=== PATIENT | male | born 1985 | race Hispanic/Latino ===

== ENCOUNTER 2018-01-07 00:50 | Inpatient (IN) | payer OTHER ==
[2018-01-07] MEDS ORDERED: Fentanyl 100 MCG/2 ML VIAL ONE ×2 (00:56→10:19)
[2018-01-07 01:07] LABS: Hemoglobin 12.8 g/dL (14.0-18.0); Mean Corpuscular HGB CONC 33.9 g/dL (32.0-36.0); Mean Corpuscular Hemoglobin 30.1 pg (27.0-31.0); Mean Corpuscular Volume 88.8 fl (80.0-94.0); Mean Platelet Volume 6.8 fL (7.4-10.4); Platelet Count 274 thou/uL (130-400); RBC Distribution Width 12.3 % (11.5-14.5); Red Blood Cell (RBC) Count 4.24 mill/uL (4.70-6.10); White Blood Cell (WBC) Count 15.8 thou/uL (4.8-10.8)
[2018-01-07 01:12] LABS: INR-International Normal Ratio 1.2; PTT 24.6 SEC (22.9-36.1); Prothrombin Time 15.3 SEC (12.0-14.7)
[2018-01-07 01:20] LABS: ALT (SGPT) 69 U/L (8-55); AST (SGOT) 121 U/L (5-34); Albumin 3.9 g/dL (3.5-5.0); Alkaline Phosphatase 78 U/L (40-150); Anion Gap 13 mmol/L (10-20); BUN (Urea Nitrogen) 4 mg/dL (8.9-20.6); Bilirubin, Total 0.5 mg/dL (0.2-1.2); Calc. Creatinine Clearance 0 mL/min (70-130); Carbon Dioxide 23 mmol/L (22-29); Chloride 104 mmol/L (98-107); Estimated GFR-MDRD Greater than 90; Globulin 2.4 g/dL (2.4-3.5); Glucose 151 mg/dL (70-105); Protein, Total 6.3 g/dL (6.0-8.3); Sodium 137 mmol/L (136-145)
[2018-01-07 01:22] LABS: Eosinophils 1 % (0-10); Lymphocytes 44 % (21-51); MDiff Complete? YES; Monocytes 1 % (0-10); Neutrophil 49 % (42-75); PLT Morphology Comment Appears Adequate; RBC Morphology Normal; Reactive Lymphocytes 5 % (0-10)
[2018-01-07 01:24] LABS: Potassium 2.9 mmol/L (3.5-5.1)
[2018-01-07] MEDS ORDERED: Adacel (T-DAP) 0.5 ML VIAL ONE (02:14)
[2018-01-07] MEDS ORDERED: CEFAZOLIN/Water 2 GM/20 ML SYRINGE ONE (02:17)
[2018-01-07 03:08] LABS: Magnesium 1.6 mg/dL (1.6-2.6); Phosphorus 3.2 mg/dL (2.3-4.7)
[2018-01-07 03:12] LABS: Amphetamine Not Detected (NotDetected); Barbiturates Screen Not Detected (NotDetected); Benzodiazepine Screen Not Detected (NotDetected); Cocaine Metabolite Screen Not Detected (NotDetected); Medtox Control Line Valid? VALID (VALID); Medtox Reader # READER 4; Methadone Not Detected (NotDetected); Methamphetamine Not Detected (NotDetected); Opiate Screen Not Detected (NotDetected); Oxycodone Screen Not Detected (NotDetected); Phencyclidine (PCP) Not Detected (NotDetected); THC/Cannabinoid Screen Not Detected (NotDetected); Tricyclic Screen Not Detected (NotDetected)
[2018-01-07] MEDS ORDERED: CEFAZOLIN/Water 2 GM/20 ML SYRINGE SLOW IVP SCH (03:30)
[2018-01-07 03:36] VITALS: BMI 22.1
[2018-01-07] MEDS ORDERED: Sodium Chloride 0.9% 1,000 ML IV SCH (03:39)
[2018-01-07] MEDS ORDERED: Dextrose 5% in Water 1,000 ML IV PRN (03:39)
[2018-01-07] MEDS ORDERED: Dextrose 50% Abboject 50 ML SYRINGE SLOW IVP PRN (03:39)
[2018-01-07] MEDS ORDERED: Ondansetron HCl/PF 4 MG/2 ML Vial IVP PRN (03:39)
[2018-01-07] MEDS ORDERED: Fentanyl 100 MCG/2 ML VIAL SLOW IVP PRN (03:52)
[2018-01-07] MEDS ORDERED: Potassium Chloride 20 MEQ in Premix Bag 1 BAG IVPB SCH (04:00)
[2018-01-07] MEDS: Fentanyl 100 MCG/2 ML VIAL SLOW IVP PRN ×2 (04:05→21:32)
[2018-01-07 04:50] LABS: Hemoglobin 11.9 g/dL (14.0-18.0)
[2018-01-07] MEDS ORDERED: CEFAZOLIN 2 GM in Sodium Chloride 0.9% 100 ML IVPB SCH (06:00)
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
[2018-01-07] MEDS: Acetaminophen 1,000 MG in Premix Bag 1 BAG IVPB SCH ×3 (07:07→18:40)
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
--- NOTE | 2018-01-07 07:53 | CT ---
CT HEAD NONCONTRAST: COMPARISON: 10/01/09. INDICATION: Posttraumatic head injury. FINDINGS: There is no ventriculomegaly, mass effect, midline shift, or acute intracranial hemorrhage. Calvariu m is intact. IMPRESSION: No acute intracranial hemorrhage or mass effect. POS: [facility]
--- NOTE | 2018-01-07 08:10 | CT ---
CT CERVICAL SPINE NONCONTRAST: INDICATION: Posttraumatic neck pain. FINDINGS: There is incidental note of a left-side pneumothorax. There is air density about anterior left costo chondral junction which could relate to diastatic injuries of this region, incompletely visualized on the basis of this exam. There is no evidence of craniocervical distraction. Vertebral body heights and alignment of the cervical spine are maintained. No retropulsion of bone. IMPRESSION: 1. Incidental left pneumothorax. This will be further described on the CT thorax exam. 2. No acute fracture or malalignment of cervical spine. 3. Notification of findings placed at time of dictation, 0120 hours 01/07/18. CODE CR POS: [facility]
--- NOTE | 2018-01-07 08:34 | CT ---
CT OF CHEST WITH CONTRAST CT ABDOMEN AND PELVIS WITH CONTRAST CT THORACIC SPINE WITH CONTRAST CT LUMBAR SPINE WITH CONTRAST: (Reformatted imaging performed) FINDINGS: There is a small volume left apical pneumothorax. Anteriorly, there is air density about anterior co stochondral junction region about the 1st rib which may relate to associated injury. There are scatt ered ground-glass and cavitary lesions seen, notably within the left lower lobe. There is abnormal h eterogeneity of the spleen with perisplenic fluid density. Given the somewhat heterogeneous enhancem ent pattern, the exact grading of splenic injury is difficult. There is a suggestion of active bleed ing at the anterior aspect of the spleen, as evidenced by a small hyperdensity. Grade of splenic inj ury is likely at least grade III. No obvious abnormality of the liver, pancreas, kidneys, or adrenal glands. The bowel is not reliably evaluated without enteric contrast. There is mild free fluid of the abdomen and pelvis. Exam is distorted by patient motion. There is a focal defect of the ventral abdominal wall soft tissues suggestive of a prominent-sized laceration. There is no posttraumatic d ilatation of the imaged aorta. There is no obvious acute compression fracture or subluxation of the thoracolumbar spine. Sternum is intact. No abnormal diastasis of symphysis pubis or sacroiliac join ts. Hip joints are maintained. There are mildly displaced left lateral and posterior rib fractures at the left 7th, 8th, and 9th ribs. IMPRESSION: 1. Small volume left apical pneumothorax. 2. At least grade III splenic traumatic injury with associated parasplenic hematoma and associated a scites. 3. Incidental note of ground-glass nodular and cavitary lesions of the lungs favoring an atypical ca vitary infectious process in a patient of this age. Alternatively, findings could relate to vasculid ities or possibly neoplasm. Pulmonary medicine consultation is warranted as followup. 4. Mildly displaced left lateral and posterior rib fractures at the left 7th, 8th, and 9th ribs. Telephone call of findings placed to ER physician, Jermaine Chanel, at time of interpretation 0135 hour s, 01/08/18. CODE CR POS: [facility]
[2018-01-07] MEDS: Famotidine/PF 20 mg/2ml Vial SLOW IVP SCH ×2 (08:53→21:25)
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
[2018-01-07] MEDS ORDERED: Magnesium Sulfate 4 GM in Sodium Chloride 0.9% 250 ML 250 ML IVPB SCH (09:15)
[2018-01-07] MEDS: CEFAZOLIN/Water 2 GM/20 ML SYRINGE SLOW IVP SCH ×2 (09:36→18:49)
[2018-01-07] MEDS ORDERED: Potassium Chloride 20 MEQ TAB PO SCH (09:45)
[2018-01-07] MEDS ORDERED: Potassium Chloride 40 MEQ in Premix Bag 1 BAG IVPB SCH (09:45)
--- NOTE | 2018-01-07 10:10 | RAD ---
PORTABLE SEMIUPRIGHT FRONTAL CHEST RADIOGRAPH: DATE: 01/07/18. COMPARISON: Surgery performed earlier on 01/07/18. HISTORY: Reevaluate pneumothorax. FINDINGS: A small pneumothorax is noted in the left lung apex, the pleural edge projecting between the left 3rd and 4th ribs. There is subtle ground-glass opacity noted in the left lung base which could be related to volume los s or contusion. The right lung appears grossly unremarkable. IMPRESSION: Small pneumothorax in the left lung apex. Nonspecific subtle ground-glass opacity in the left lung b ase. Continued followup is advised. POS: [facility]
[2018-01-07] MEDS ORDERED: Midazolam HCl 2 mg/2 ml Vial ONE (10:19)
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
[2018-01-07] MEDS ORDERED: HYDROmorphone 0.5 MG/0.5 ML SYRINGE ONE ×2 (10:20→13:20)
[2018-01-07] MEDS: Sodium Chloride 0.45% 1,000 ML IV SCH (10:23)
[2018-01-07] MEDS ORDERED: ISOVUE-370 76%-LOCM 1 ML ONE (11:33)
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
[2018-01-07] MEDS ORDERED: Bacitracin Zinc Ointment 30 gm TUBE ONE (13:59)
[2018-01-07] MEDS ORDERED: Lidocaine 1% PF 5 ML VIAL ONE (14:02)
[2018-01-07] MEDS ORDERED: PHENYLEPHRINE-NS 100 MCG/ML 10 ML SYRINGE ONE (14:02)
[2018-01-07] MEDS ORDERED: PROPOFOL 200 MG/20 ML VIAL ONE (14:02)
[2018-01-07] MEDS ORDERED: Glycopyrrolate 0.2 MG/ML 5 ML SYRINGE ONE (14:02)
[2018-01-07] MEDS ORDERED: Ondansetron HCl/PF 4 MG/2 ML Vial ONE (14:02)
[2018-01-07] MEDS ORDERED: Dexamethasone 20 MG/5 ML VIAL ONE (14:02)
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
--- NOTE | 2018-01-07 14:59 | RAD ---
INTRAOPERATIVE FLUOROSCOPY: HISTORY: Fracture. Internal fixation with hardware placement. EXPOSURE: 238.4 seconds. 11.62 mGy. FINDINGS: Seven fluoroscopic images demonstrate an intramedullary morgan with 2 proximal and 2 distal interlocking screws. Distal tibia and fibula fractures are identified. IMPRESSION: Fluoroscopy as above. POS: [facility]
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
[2018-01-07] MEDS ORDERED: Tranexamic Acid 1,000 MG in Sodium Chloride 0.9% 100 ML IVPB SCH (15:45)
[2018-01-07 15:57] LABS: Hemoglobin 11.3 g/dL (14.0-18.0)
[2018-01-07 16:42] LABS: BF Color Colorless; BF RBC Count - Manual 1775 /cumm; Body Fluid Source Bronchioalveol Lavag; Clarity Hazy (Clear); Tube # EDTA; WBC Background Count 0.01; WBC/NonHematic-Auto 244 /cumm
[2018-01-07 17:27] LABS: BF Segmented Neutrophils 13 %; Cell Count Non Hematic 85 %; Lymphocytes 2 %
[2018-01-07 23:11] LABS: Hemoglobin 10.4 g/dL (14.0-18.0)
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
--- NOTE | 2018-01-08 00:10 | OP ---
DATE OF SERVICE: 01/07/2018 SERVICE: Pulmonary Medicine. PROCEDURE: Fiberoptic bronchoscopy with: 1. Visual airway inspection. 2. Bronchioalveolar lavage from the left lower lobe. PREOPERATIVE DIAGNOSIS: Pulmonary infiltrate. POSTPROCEDURE DIAGNOSIS: Pulmonary infiltrate. PROCEDURE SPECIMEN BOSS: Alo Moss M.D. MEDICATIONS USED: For list of medications, please refer to anesthesia documentation. PREANESTHESIA ASSESSMENT: H&P had been performed. The patient's medications and allergies were revi ewed. Informed consent was obtained after discussing the risks, benefits, and rationale for performi ng the procedure as well as alternative options. DESCRIPTION OF PROCEDURE: A timeout was performed, identifying the correct procedure and patient wit h name and date of . A diagnostic fiberoptic bronchoscope was introduced through the existing e ndotracheal tube. The bronchoscope was advanced into the trachea where a tracheobronchial tree inspe ction was carried out with clear identification of the right upper lobe, right middle lobe, right low er lobe, left upper lobe, and left lower lobe. There were bloody secretions that appeared to be old coming from the left lower lobe. Anatomy was normal to the segmental level. Bronchioalveolar lavage was obtained from the left lower lobe. The bronchoscope was subsequently removed from the patient. FINDINGS: 1. No endobronchial disease was identified. 2. Secretions were minimal and had the appearance of old blood, emanating from the left lower lobe. SPECIMENS OBTAINED: BAL for Microbiology, and cell count. COMPLICATIONS: None. ESTIMATED BLOOD LOSS: None. FLUOROSCOPY TIME: None. DISPOSITION: The patient will be transitioned back to the ICU after meeting criteria in the postanes thesia care unit.
[2018-01-08] MEDS: Acetaminophen 1,000 MG in Premix Bag 1 BAG IVPB SCH ×2 (00:18→06:10)
[2018-01-08] MEDS: Sodium Chloride 0.45% 1,000 ML IV SCH (00:18)
[2018-01-08] MEDS: CEFAZOLIN/Water 2 GM/20 ML SYRINGE SLOW IVP SCH ×3 (02:37→17:53)
[2018-01-08 05:23] LABS: #Lymphocytes 1.1 thou/uL (1.20-3.40); #Monocytes 1.1 thou/uL (0.11-0.59); #Neutrophils 7.4 thou/uL (1.40-6.50); %Basophils 0.1 % (0.0-1.0); %Eosinophils 0.1 % (0.0-10.0); %Lymphocytes 11.8 % (21.0-51.0); %Monocytes 11.2 % (0.0-10.0); %Neutrophils 76.9 % (42.0-75.0); Hemoglobin 9.8 g/dL (14.0-18.0); Mean Corpuscular HGB CONC 33.7 g/dL (32.0-36.0); Mean Corpuscular Hemoglobin 30.3 pg (27.0-31.0); Mean Corpuscular Volume 89.9 fl (80.0-94.0); Platelet Count 168 thou/uL (130-400); RBC Distribution Width 12.5 % (11.5-14.5); Red Blood Cell (RBC) Count 3.25 mill/uL (4.70-6.10); White Blood Cell (WBC) Count 9.7 thou/uL (4.8-10.8)
[2018-01-08 05:53] LABS: Anion Gap 8 mmol/L (10-20); BUN (Urea Nitrogen) 7 mg/dL (8.9-20.6); Calc. Creatinine Clearance 126 mL/min (70-130); Calcium 8.6 mg/dL (7.8-10.44); Carbon Dioxide 23 mmol/L (22-29); Chloride 108 mmol/L (98-107); Estimated GFR-MDRD Greater than 90; Glucose 137 mg/dL (70-105); Magnesium 2.4 mg/dL (1.6-2.6); Phosphorus 2.4 mg/dL (2.3-4.7); Sodium 135 mmol/L (136-145)
[2018-01-08] MEDS: Famotidine/PF 20 mg/2ml Vial SLOW IVP SCH (08:29)
[2018-01-08 09:53] LABS: Hemoglobin 9.8 g/dL (14.0-18.0)
[2018-01-08] MEDS ORDERED: FLUoxetine HCl 20 MG CAP PO SCH (10:45)
[2018-01-08] MEDS ORDERED: Sodium Chloride 0.45% 1,000 ML IV SCH (10:56)
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
[2018-01-08] MEDS ORDERED: traMADol HCl 50 MG TAB PO PRN (11:02)
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
[2018-01-08] MEDS: Acetaminophen 500 MG TAB PO SCH ×2 (13:57→17:52)
[2018-01-08] MEDS: traMADol HCl 50 MG TAB PO SCH ×2 (13:57→17:52)
--- NOTE | 2018-01-08 15:38 | RAD ---
ONE VIEW CHEST: COMPARISON: 01/07/18. HISTORY: Pneumothorax followup. FINDINGS: Stable left-sided pneumothorax noted to the level of the posterior 3rd rib. Persistent opacification of the left lung base. Stable aeration of the right lung. Stable cardiac silhouette. Interval mul tiple skin shane. IMPRESSION: Stable left-sided pneumothorax. POS: [facility]
[2018-01-08 16:04] LABS: Hemoglobin 9.5 g/dL (14.0-18.0)
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
[2018-01-08] MEDS ORDERED: carBAMazepine 200 MG TAB PO SCH (21:00)
[2018-01-08] MEDS ORDERED: clonazePAM 1 MG TAB PO SCH (21:00)
[2018-01-08] MEDS: carBAMazepine 200 MG TAB PO SCH (21:36)
[2018-01-08] MEDS: OLANZapine 5 MG TAB PO SCH (21:36)
[2018-01-08] MEDS: Famotidine 20 MG TAB PO SCH (21:36)
[2018-01-08] MEDS: clonazePAM 1 MG TAB PO SCH (21:47)
[2018-01-08 22:25] LABS: Hemoglobin 9.2 g/dL (14.0-18.0)
[2018-01-09] MEDS: Acetaminophen 500 MG TAB PO SCH ×4 (00:42→18:01)
[2018-01-09] MEDS: traMADol HCl 50 MG TAB PO SCH ×4 (00:43→18:01)
[2018-01-09] MEDS: CEFAZOLIN/Water 2 GM/20 ML SYRINGE SLOW IVP SCH ×3 (02:38→18:02)
[2018-01-09 03:55] LABS: Hemoglobin 9.3 g/dL (14.0-18.0)
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
[2018-01-09] MEDS: carBAMazepine 200 MG TAB PO SCH ×2 (08:53→20:35)
[2018-01-09] MEDS: Famotidine 20 MG TAB PO SCH ×2 (08:53→20:36)
[2018-01-09] MEDS: clonazePAM 1 MG TAB PO SCH ×2 (08:53→20:36)
[2018-01-09] MEDS: FLUoxetine HCl 20 MG CAP PO SCH (08:53)
--- NOTE | 2018-01-09 10:33 | RAD ---
CHEST ONE VIEW: History: Follow up pneumothorax. Comparison: 01-08-18 FINDINGS: Stable post-surgical shane projecting over the left hemithorax in the left upper quadrant. Stable c onfiguration of the cardiac silhouette. Stable aeration of the lung parenchyma. Patchy opacities in t he left lung base. Small left apical pneumothorax. IMPRESSION: Small left apical pneumothorax. POS: [facility]
[2018-01-09] MEDS: OLANZapine 5 MG TAB PO SCH (20:36)
[2018-01-10] MEDS: Acetaminophen 500 MG TAB PO SCH ×4 (00:30→17:53)
[2018-01-10] MEDS: traMADol HCl 50 MG TAB PO SCH ×4 (00:31→17:53)
[2018-01-10] MEDS: CEFAZOLIN/Water 2 GM/20 ML SYRINGE SLOW IVP SCH (02:40)
[2018-01-10] MEDS: carBAMazepine 200 MG TAB PO SCH ×2 (09:18→20:24)
[2018-01-10] MEDS: clonazePAM 1 MG TAB PO SCH ×2 (09:18→20:24)
[2018-01-10] MEDS: Senokot S 8.6-50 MG TAB PO SCH ×2 (09:18→20:24)
[2018-01-10] MEDS: FLUoxetine HCl 20 MG CAP PO SCH (09:18)
[2018-01-10] MEDS: Polyethylene Glycol 3350 17 GM Packet PO SCH (09:19)
[2018-01-10] MEDS: OLANZapine 5 MG TAB PO SCH (20:24)
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
[2018-01-11] MEDS: traMADol HCl 50 MG TAB PO SCH ×5 (00:33→23:39)
[2018-01-11] MEDS: Acetaminophen 500 MG TAB PO SCH ×5 (00:33→23:39)
[2018-01-11 05:13] LABS: #Eosinphils 0.1 thou/uL (0.0-0.7); #Lymphocytes 1.9 thou/uL (1.20-3.40); #Monocytes 0.5 thou/uL (0.11-0.59); #Neutrophils 4.8 thou/uL (1.40-6.50); %Basophils 0.6 % (0.0-1.0); %Eosinophils 0.7 % (0.0-10.0); %Lymphocytes 25.8 % (21.0-51.0); %Monocytes 7.1 % (0.0-10.0); %Neutrophils 65.8 % (42.0-75.0); Hemoglobin 8.5 g/dL (14.0-18.0); Mean Corpuscular HGB CONC 34.2 g/dL (32.0-36.0); Mean Corpuscular Hemoglobin 30.8 pg (27.0-31.0); Mean Corpuscular Volume 89.8 fl (80.0-94.0); Mean Platelet Volume 7.1 fL (7.4-10.4); Platelet Count 147 thou/uL (130-400); RBC Distribution Width 12.3 % (11.5-14.5); Red Blood Cell (RBC) Count 2.78 mill/uL (4.70-6.10); White Blood Cell (WBC) Count 7.3 thou/uL (4.8-10.8)
[2018-01-11 05:18] LABS: Anion Gap 7 mmol/L (10-20); BUN (Urea Nitrogen) 6 mg/dL (8.9-20.6); Calc. Creatinine Clearance 148 mL/min (70-130); Calcium 8.6 mg/dL (7.8-10.44); Carbon Dioxide 32 mmol/L (22-29); Chloride 106 mmol/L (98-107); Estimated GFR-MDRD Greater than 90; Glucose 95 mg/dL (70-105); Magnesium 1.8 mg/dL (1.6-2.6); Phosphorus 3.7 mg/dL (2.3-4.7); Potassium 3.5 mmol/L (3.5-5.1); Sodium 141 mmol/L (136-145)
--- NOTE | 2018-01-11 07:34 | RAD ---
CHEST 1 VIEW: HISTORY: A 32-year-old male with a history of followup left-side pneumothorax. FINDINGS: Small persistent left-side pneumothorax. Surgical shane are noted overlying the ultrasound upper a bdomen and left lower chest. Minimal pleural and parenchymal opacity changes in the left base probab ly related to some minimal pleural effusion and subsegmental atelectasis or mild pneumonitis. Minima l parenchymal changes in the right base as well. IMPRESSION: Small left-side pneumothorax. Bibasilar parenchymal changes, worse in the left base, worse when comp ared to the prior 01/09/18 study. Continued short-term followup for clearing. POS: [facility]
[2018-01-11] MEDS: FLUoxetine HCl 20 MG CAP PO SCH (08:20)
[2018-01-11] MEDS: Polyethylene Glycol 3350 17 GM Packet PO SCH (08:20)
[2018-01-11] MEDS: carBAMazepine 200 MG TAB PO SCH ×2 (08:20→20:29)
[2018-01-11] MEDS: Magnesium Oxide 400 MG TAB PO SCH (08:20)
[2018-01-11] MEDS: clonazePAM 1 MG TAB PO SCH ×2 (08:20→20:29)
[2018-01-11 08:23] LABS: Fungus Stain Final report (.)
[2018-01-11] MEDS: Senokot S 8.6-50 MG TAB PO SCH ×2 (09:55→20:29)
[2018-01-11] MEDS: Enoxaparin Sodium 40 MG/0.4 ML SYRINGE SC SCH (09:55)
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
[2018-01-11] MEDS: OLANZapine 5 MG TAB PO SCH (20:29)
[2018-01-12] MEDS: Acetaminophen 500 MG TAB PO SCH ×3 (05:48→17:29)
[2018-01-12] MEDS: traMADol HCl 50 MG TAB PO SCH ×3 (05:49→17:29)
[2018-01-12] MEDS: clonazePAM 1 MG TAB PO SCH (08:56)
[2018-01-12] MEDS: FLUoxetine HCl 20 MG CAP PO SCH (08:56)
[2018-01-12] MEDS: Senokot S 8.6-50 MG TAB PO SCH (08:56)
[2018-01-12] MEDS: Magnesium Oxide 400 MG TAB PO SCH (08:56)
[2018-01-12] MEDS: carBAMazepine 200 MG TAB PO SCH (08:56)
[2018-01-12] MEDS: Enoxaparin Sodium 40 MG/0.4 ML SYRINGE SC SCH (08:57)
[2018-01-12] MEDS: Polyethylene Glycol 3350 17 GM Packet PO SCH (08:57)
[2018-01-12] MEDS ORDERED: Senokot 8.6 MG TAB PO SCH (09:00)
[2018-01-12] MEDS ORDERED: Docusate 100 MG CAP PO SCH (09:00)
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
[2018-01-12 15:39] LABS: Cell Block/Cytology Request REQUEST RECEIVED
[2018-01-12 16:25] VITALS: BP 136/88; TEMP 98.3
== END 2018-01-12 17:45 | DRG 958 ==
LOC: ERS 00:50 → CCU 01:40 → SURG A 14:51 → CCU 14:54 → SURG A 15:05 → CCU 15:14 → SURG A 16:23
PROVIDERS: ADMIT Surgery; ATTEND Surgery
PROC: 0QSH06Z Reposition Left Tibia with Intramedullary Internal Fixation Device, Open Approach (ICD-10-PCS; principal; 2018-01-07)
PROC: 2W3MX1Z Immobilization of Left Lower Extremity using Splint (ICD-10-PCS; 2018-01-07)
PROC: 0PSL04Z Reposition Left Ulna with Internal Fixation Device, Open Approach (ICD-10-PCS; 2018-01-07)
PROC: 0B9J8ZX Drainage of Left Lower Lung Lobe, Via Natural or Artificial Opening Endoscopic, Diagnostic (ICD-10-PCS; 2018-01-07)
PROC: 3E10X8Z Irrigation of Skin and Mucous Membranes using Irrigating Substance (ICD-10-PCS; 2018-01-07)
PROC: 0HQ5XZZ Repair Chest Skin, External Approach (ICD-10-PCS; 2018-01-07)
PROC: 0HQ7XZZ Repair Abdomen Skin, External Approach (ICD-10-PCS; 2018-01-07)
PROC: 2W43X5Z Packing of Abdominal Wall using Packing Material (ICD-10-PCS; 2018-01-07)
DX: S82.252A Displaced comminuted fracture of shaft of left tibia, initial encounter for closed fracture (principal); S36.031A Moderate laceration of spleen, initial encounter; S22.42XA Multiple fractures of ribs, left side, initial encounter for closed fracture; S27.0XXA Traumatic pneumothorax, initial encounter; S52.202A Unspecified fracture of shaft of left ulna, initial encounter for closed fracture; S21.112A Laceration without foreign body of left front wall of thorax without penetration into thoracic cavity, initial encounter; R18.8 Other ascites; S27.321A Contusion of lung, unilateral, initial encounter; S82.452A Displaced comminuted fracture of shaft of left fibula, initial encounter for closed fracture; S31.119A Laceration without foreign body of abdominal wall, unspecified quadrant without penetration into peritoneal cavity, initial encounter; V03.90XA Pedestrian on foot injured in collision with car, pick-up truck or van, unspecified whether traffic or nontraffic accident, initial encounter; F31.9 Bipolar disorder, unspecified; F17.210 Nicotine dependence, cigarettes, uncomplicated; S00.81XA Abrasion of other part of head, initial encounter; S00.31XA Abrasion of nose, initial encounter; E87.6 Hypokalemia; G89.11 Acute pain due to trauma; F20.9 Schizophrenia, unspecified; S50.812A Abrasion of left forearm, initial encounter; S50.811A Abrasion of right forearm, initial encounter
CPT/HCPCS: 29105; 29505; 36415; 51703; 70450; 71045; 71260; 72125; 74177; 76001; 80048; 80053; 80306; 82150; 83735; 84100; 85014; 85018; 85025; 85060; 85610; 85730; 86850; 86900; 86901; 87040; 87070; 87116; 87149; 87206; 88112; 88312; 89051; 90471; 90715; 96361; 96374; 96375; 96376; C1713; C1769; G0390; G8978-GP-CM; G8979-GP-CI; G8987-GO-CK; G8988-GO-CJ; J0131; J1100; J1170; J1650; J2001; J2250; J2405; J2704; J3010; J3475; J3480; J7050; S0028

== ENCOUNTER 2018-02-23 12:37 | Emergency (ER) | payer OTHER ==
[2018-02-23] MEDS ORDERED: Acetaminophen 500 MG TAB ONE (12:58)
[2018-02-23 14:16] LABS: Hemoglobin 10.7 g/dL (14.0-18.0); Mean Corpuscular HGB CONC 34.5 g/dL (32.0-36.0); Mean Corpuscular Hemoglobin 29.5 pg (27.0-31.0); Mean Corpuscular Volume 85.5 fL (78.0-98.0); Mean Platelet Volume 6.7 fL (7.4-10.4); Platelet Count 218 thou/uL (130-400); RBC Distribution Width 13.4 % (11.5-14.5); Red Blood Cell (RBC) Count 3.64 mill/uL (4.70-6.10); White Blood Cell (WBC) Count 16.3 thou/uL (4.8-10.8)
[2018-02-23 14:35] LABS: Band 24 % (5-11); Lymphocytes 10 % (21-51); MDiff Complete? YES; Monocytes 3 % (0-10); Neutrophil 62 % (42-75); PLT Morphology Comment Appears Adequate; Polychromasia SLIGHT = 2-3 cells (100X) (0-2/hpf); Reactive Lymphocytes 1 % (0-10)
[2018-02-23 14:36] LABS: ALT (SGPT) 53 U/L (8-55); AST (SGOT) 42 U/L (5-34); Albumin 3.8 g/dL (3.5-5.0); Alkaline Phosphatase 151 U/L (40-150); Anion Gap 15 mmol/L (10-20); BUN (Urea Nitrogen) 20 mg/dL (8.9-20.6); Bilirubin, Total 0.3 mg/dL (0.2-1.2); CK (CPK) 14 U/L (30-200); Calc. Creatinine Clearance 0 mL/min (70-130); Calcium 9.3 mg/dL (7.8-10.44); Carbon Dioxide 23 mmol/L (22-29); Chloride 94 mmol/L (98-107); Estimated GFR-MDRD 48; Globulin 3.3 g/dL (2.4-3.5); Glucose 121 mg/dL (70-105); Potassium 3.4 mmol/L (3.5-5.1); Protein, Total 7.1 g/dL (6.0-8.3); Sodium 129 mmol/L (136-145)
--- NOTE | 2018-02-23 15:36 | RAD ---
AP VIEW CHEST: HISTORY: Fever and cough. FINDINGS: AP view chest is obtained on 02/23/18. Comparison is made to previous exam from 01/17/18. AP view chest demonstrates the lungs to be well aerated. No evidence of active intrathoracic disease is seen. No evidence of effusions, pneumonia, or pneumothorax seen. IMPRESSION: Unremarkable AP view chest. POS: [facility]
== END 2018-02-23 16:25 | disposition home or self-care (01) ==
LOC: ERS 12:37
DX: J40 Bronchitis, not specified as acute or chronic (principal); F17.210 Nicotine dependence, cigarettes, uncomplicated
CPT/HCPCS: 71045; 80053; 82550; 85025; 87040; 96360; 96361

== ENCOUNTER 2022-02-02 12:00 | Emergency (ER) | payer OTHER ==
[2022-02-02 12:42] LABS: #Eosinphils 0.1 thou/uL (0.0-0.7); #Lymphocytes 2.3 thou/uL (1.20-3.40); #Monocytes 0.7 thou/uL (0.11-0.59); #Neutrophils 5.9 thou/uL (1.40-6.50); %Basophils 0.2 % (0.0-1.0); %Eosinophils 1.6 % (0.0-10.0); %Lymphocytes 25.6 % (21.0-51.0); %Monocytes 7.7 % (0.0-10.0); %Neutrophils 64.9 % (42.0-75.0); Hemoglobin 13.2 g/dL (14.0-18.0); Mean Corpuscular HGB CONC 33.4 g/dL (32.0-36.0); Mean Corpuscular Hemoglobin 31.3 pg (27.0-31.0); Mean Corpuscular Volume 93.8 fL (78.0-98.0); Mean Platelet Volume 7.9 fL (7.4-10.4); Platelet Count 207 thou/uL (130-400); RBC Distribution Width 13.1 % (11.5-14.5); Red Blood Cell (RBC) Count 4.23 mill/uL (4.70-6.10)
[2022-02-02 13:00] LABS: Acetaminophen Less than 10.0 mcg/mL (10.0-30.0); Alcohol Less than 10 mg/dL (Less than 10); Salicylate Less than 8.0 mg/dL (15.0-30.0)
[2022-02-02 13:24] LABS: ALT (SGPT) 11 U/L (8-55); AST (SGOT) 12 U/L (5-34); Albumin 4.4 g/dL (3.5-5.0); Alkaline Phosphatase 83 U/L (40-110); Anion Gap 12 mmol/L (10-20); BUN (Urea Nitrogen) 10 mg/dL (8.9-20.6); Bilirubin, Total 0.8 mg/dL (0.2-1.2); CK (CPK) 47 U/L (30-200); Calc. Creatinine Clearance 0 mL/min (70-130); Calcium 9.4 mg/dL (7.8-10.44); Carbon Dioxide 25 mmol/L (22-29); Chloride 107 mmol/L (98-107); Globulin 2.8 g/dL (2.4-3.5); Glucose 87 mg/dL (70-105); Potassium 3.7 mmol/L (3.5-5.1); Protein, Total 7.2 g/dL (6.0-8.3); Sodium 140 mmol/L (136-145)
[2022-02-02 14:05] LABS: Bacteria/HPF 4+ HPF (None Seen); Bilirubin Negative (Negative); Blood, Urine Negative (Negative); Clarity Turbid (Clear); Glucose, Urine (Dipstick) Normal (Negative); Ketone, Urine Negative (Negative); Leukocyte 500 Leu/uL (Negative); Nitrite Negative (Negative); Protein, Urine (Dipstick) 30 mg/dL (Neg-Trace); Specific Gravity, Urine 1.026 (1.002-1.036); Squamous Epithelial 0-3 HPF (0-3); Urobilinogen 6 mg/dL (Less than 2); WBC/HPF Greater than 50 HPF (0-3)
[2022-02-02 14:06] LABS: Sperm/HPF 4+ HPF (None Seen)
[2022-02-02 14:12] LABS: Amphetamine Not Detected (NotDetected); Barbiturates Screen Not Detected (NotDetected); Benzodiazepine Screen Not Detected (NotDetected); Cocaine Metabolite Screen Not Detected (NotDetected); Methadone Not Detected (NotDetected); Methamphetamine Not Detected (NotDetected); Opiate Screen Not Detected (NotDetected); Oxycodone Screen Not Detected (NotDetected); Phencyclidine (PCP) Not Detected (NotDetected); THC/Cannabinoid Screen Not Detected (NotDetected); Tricyclic Screen Not Detected (NotDetected)
[2022-02-02] MEDS ORDERED: Sulfameth/Trimethoprim DS 800-160mg TAB ONE (14:54)
[2022-02-02] MEDS ORDERED: traZODone HCl 50 MG TAB ONE (23:42)
[2022-02-03 10:26] LABS: SARS-CoV-2 NAA Rapid Test Not Detected (NotDetected)
== END 2022-02-03 12:48 ==
LOC: ERS 12:00
DX: F20.9 Schizophrenia, unspecified (principal); N39.0 Urinary tract infection, site not specified; I10 Essential (primary) hypertension; F17.210 Nicotine dependence, cigarettes, uncomplicated
CPT/HCPCS: 36415; 51701; 80053; 80306; 80307; 81003; 81015; 82550; 84443; 85025; 93005; U0002

== ENCOUNTER 2022-11-21 02:23 | Inpatient (IN) | payer MEDICAID, OTHER, SELFPAY ==
[2022-11-21] MEDS ORDERED: LORazepam 2 MG/ML SYR.(CARPUJECT) ONE ×2 (02:41→04:19)
[2022-11-21] MEDS ORDERED: Diltiazem 125 MG/25 ML SDV ONE (02:56)
[2022-11-21 02:57] LABS: Hemoglobin 11.9 g/dL (14.0-18.0); Mean Corpuscular HGB CONC 34.1 g/dL (32.0-36.0); Mean Corpuscular Hemoglobin 29.6 pg (27.0-31.0); Mean Corpuscular Volume 86.9 fl (78.0-98.0); Mean Platelet Volume 7.4 fL (7.4-10.4); Platelet Count 255 10x3/uL (130-400); RBC Distribution Width 13.2 % (11.5-14.5); Red Blood Cell (RBC) Count 4.04 mill/uL (4.70-6.10); White Blood Cell (WBC) Count 24.4 10x3/uL (4.8-10.8)
[2022-11-21 03:18] LABS: ALT (SGPT) 12 U/L (8-55); AST (SGOT) 13 U/L (5-34); Albumin 4.1 g/dL (3.5-5.0); Alkaline Phosphatase 87 U/L (40-110); Anion Gap 19 mmol/L (10-20); BUN (Urea Nitrogen) 10 mg/dL (8.9-20.6); Bilirubin, Total 0.2 mg/dL (0.2-1.2); CK (CPK) 120 U/L (30-200); Calc. Creatinine Clearance 0 mL/min (70-130); Carbon Dioxide 15 mmol/L (22-29); Chloride 100 mmol/L (98-107); Estimated GFR 51; Globulin 2.5 g/dL (2.4-3.5); Potassium 3.2 mmol/L (3.5-5.1); Protein, Total 6.6 g/dL (6.0-8.3); Sodium 131 mmol/L (136-145)
[2022-11-21 03:30] LABS: Glucose 417 mg/dL (70-105)
[2022-11-21 03:49] LABS: Band 2 % (5-11); Lymphocytes 3 % (21-51); MDiff Complete? YES; Monocytes 2 % (0-10); Neutrophil 93 % (42-75); Platelet Morphology Comment Appears Adequate; RBC Morphology Normal
[2022-11-21] MEDS ORDERED: Calcium Carbonate 500 MG ChewTAB PO PRN (04:30)
[2022-11-21] MEDS ORDERED: Acetaminophen 325 MG TAB PO PRN (04:30)
[2022-11-21] MEDS ORDERED: Ondansetron ODT 4 MG TAB PO PRN (04:30)
[2022-11-21] MEDS ORDERED: Lorazepam 2 MG/ML VIAL SLOW IVP PRN (04:33)
[2022-11-21 04:51] LABS: Hemoglobin A1c 5.2 % (4.0-6.0)
[2022-11-21] MEDS ORDERED: Sodium Chloride 0.9% 1,000 ML IV SCH (05:00)
[2022-11-21 05:04] LABS: Troponin I 0.069 ng/mL (< 0.028)
[2022-11-21] MEDS ORDERED: Potassium Chloride 20 MEQ TAB PO SCH (06:00)
[2022-11-21] MEDS ORDERED: HumaLOG 300 UNITS/3 ML VIAL SC SCH (06:00)
[2022-11-21 06:08] LABS: Lactic Acid 3.4 mmol/L (0.5-2.2)
[2022-11-21] MEDS ORDERED: Dextrose 50% Abboject 50 ML SYRINGE IVP PRN (06:15)
[2022-11-21] MEDS ORDERED: Dextrose 5% in Water 1,000 ML IV PRN (06:15)
[2022-11-21] MEDS ORDERED: Diltiazem 125 MG in Sodium Chloride 0.9% 100 ML IVPB SCH (06:15)
[2022-11-21] MEDS ORDERED: HumaLOG 300 UNITS/3 ML VIAL SC PRN (06:15)
[2022-11-21] MEDS ORDERED: Electrolyte Replacement Protocol 1 EACH FS SCH (06:15)
[2022-11-21 06:21] LABS: Acetaminophen Less than 10.0 mcg/mL (10.0-30.0); Alcohol Less than 10 mg/dL (Less than 10); Salicylate Less than 8.0 mg/dL (15.0-30.0)
[2022-11-21] MEDS: Potassium Chloride 20 MEQ in Premix Bag 1 BAG IVPB SCH ×2 (06:24→09:17)
[2022-11-21] MEDS ORDERED: levETIRAcetam 500 MG/5 ML VIAL SLOW IVP SCH (06:30)
[2022-11-21 06:33] VITALS: BMI 27.6
[2022-11-21 06:47] LABS: Amphetamine Not Detected (NotDetected); Barbiturates Screen Not Detected (NotDetected); Benzodiazepine Screen Not Detected (NotDetected); Cocaine Metabolite Screen Detected (NotDetected); Methadone Not Detected (NotDetected); Methamphetamine Not Detected (NotDetected); Opiate Screen Not Detected (NotDetected); Oxycodone Screen Not Detected (NotDetected); Phencyclidine (PCP) Not Detected (NotDetected); THC/Cannabinoid Screen Not Detected (NotDetected); Tricyclic Screen Not Detected (NotDetected)
[2022-11-21] MEDS: Famotidine 20 MG TAB PO SCH ×2 (09:17→20:01)
[2022-11-21 10:06] LABS: Troponin I 0.152 ng/mL (< 0.028)
[2022-11-21 12:20] LABS: #Lymphocytes 2.1 thou/uL (1.20-3.40); #Monocytes 1.7 thou/uL (0.11-0.59); #Neutrophils 16.9 thou/uL (1.40-6.50); %Basophils 0.2 % (0.0-1.0); %Lymphocytes 10.2 % (21.0-51.0); %Monocytes 8.1 % (0.0-10.0); %Neutrophils 81.5 % (42.0-75.0); Hemoglobin 11.9 g/dL (14.0-18.0); Mean Corpuscular HGB CONC 32.6 g/dL (32.0-36.0); Mean Corpuscular Hemoglobin 28.4 pg (27.0-31.0); Mean Platelet Volume 7.5 fL (7.4-10.4); Platelet Count 242 10x3/uL (130-400); RBC Distribution Width 13.2 % (11.5-14.5); Red Blood Cell (RBC) Count 4.19 mill/uL (4.70-6.10); White Blood Cell (WBC) Count 20.7 10x3/uL (4.8-10.8)
[2022-11-21 13:09] LABS: Lactic Acid 1.9 mmol/L (0.5-2.2)
[2022-11-21 13:26] LABS: ALT (SGPT) 14 U/L (8-55); AST (SGOT) 29 U/L (5-34); Alkaline Phosphatase 75 U/L (40-110); Anion Gap 13 mmol/L (10-20); BUN (Urea Nitrogen) 8 mg/dL (8.9-20.6); Bilirubin, Total 0.4 mg/dL (0.2-1.2); Calc. Creatinine Clearance 121 mL/min (70-130); Calcium 8.9 mg/dL (7.8-10.44); Carbon Dioxide 21 mmol/L (22-29); Chloride 111 mmol/L (98-107); Estimated GFR 110; Globulin 2.5 g/dL (2.4-3.5); Glucose 95 mg/dL (70-105); Potassium 4.6 mmol/L (3.5-5.1); Protein, Total 6.5 g/dL (6.0-8.3); Sodium 140 mmol/L (136-145)
[2022-11-21] MEDS: levETIRAcetam 500 MG/5 ML VIAL SLOW IVP SCH (20:01)
[2022-11-22 08:02] VITALS: TEMP 98
[2022-11-22 08:25] LABS: #Eosinphils 0.1 thou/uL (0.0-0.7); #Lymphocytes 2.2 thou/uL (1.20-3.40); #Monocytes 0.8 thou/uL (0.11-0.59); #Neutrophils 7.2 thou/uL (1.40-6.50); %Basophils 0.4 % (0.0-1.0); %Eosinophils 0.8 % (0.0-10.0); %Lymphocytes 21.5 % (21.0-51.0); %Monocytes 7.5 % (0.0-10.0); %Neutrophils 69.9 % (42.0-75.0); Hemoglobin 11.2 g/dL (14.0-18.0); Mean Corpuscular HGB CONC 32.3 g/dL (32.0-36.0); Mean Corpuscular Hemoglobin 27.9 pg (27.0-31.0); Mean Corpuscular Volume 86.5 fl (78.0-98.0); Mean Platelet Volume 7.8 fL (7.4-10.4); Platelet Count 233 10x3/uL (130-400); RBC Distribution Width 13.4 % (11.5-14.5); White Blood Cell (WBC) Count 10.3 10x3/uL (4.8-10.8)
[2022-11-22] MEDS: Famotidine 20 MG TAB PO SCH (08:53)
[2022-11-22] MEDS: levETIRAcetam 500 MG/5 ML VIAL SLOW IVP SCH (08:54)
[2022-11-22 08:58] LABS: Anion Gap 11 mmol/L (10-20); BUN (Urea Nitrogen) 7 mg/dL (8.9-20.6); Calc. Creatinine Clearance 121 mL/min (70-130); Calcium 8.7 mg/dL (7.8-10.44); Carbon Dioxide 22 mmol/L (22-29); Chloride 111 mmol/L (98-107); Estimated GFR 110; Glucose 96 mg/dL (70-105); Potassium 3.8 mmol/L (3.5-5.1); Sodium 140 mmol/L (136-145)
[2022-11-22 16:00] VITALS: BP 118/74
== END 2022-11-22 17:03 | disposition home or self-care (01) | DRG 917 ==
LOC: ERS 02:23 → ERHOLD 04:09 → CCU 05:42 → T4-B 16:06
PROVIDERS: ADMIT Student in an Organized Health Care Education/Training Program; ATTEND Internal Medicine
DX: T40.5X1A Poisoning by cocaine, accidental (unintentional), initial encounter (principal); G92.8 Other toxic encephalopathy; E87.20 Acidosis, unspecified; E87.1 Hypo-osmolality and hyponatremia; N17.9 Acute kidney failure, unspecified; I10 Essential (primary) hypertension; F31.9 Bipolar disorder, unspecified; F20.9 Schizophrenia, unspecified; F17.210 Nicotine dependence, cigarettes, uncomplicated; R73.9 Hyperglycemia, unspecified; R56.9 Unspecified convulsions; I45.10 Unspecified right bundle-branch block; E87.6 Hypokalemia; Z79.899 Other long term (current) drug therapy; Y92.9 Unspecified place or not applicable
CPT/HCPCS: 36415; 36416; 80048; 80053; 80306; 80307; 82550; 83036; 83605; 83880; 84145; 84484; 85025; 87040; 93005; J1650; J1953; J2060; J3480; J7050

== ENCOUNTER 2023-10-14 08:35 | Outpatient (CLI) | payer OTHER | END 2023-10-14 08:36 | disposition home or self-care (01) | LOC: BICCT 08:35 | PROVIDERS: ATTEND Nurse Practitioner Family | DX: K43.9 Ventral hernia without obstruction or gangrene (principal); E27.9 Disorder of adrenal gland, unspecified | CPT/HCPCS: 74150 ==

== ENCOUNTER 2024-05-20 11:29 | Emergency (ER) | payer OTHER | END 2024-05-20 12:00 | disposition home or self-care (01) | LOC: ERS 11:29 | DX: F41.9 Anxiety disorder, unspecified (principal); I10 Essential (primary) hypertension; F17.210 Nicotine dependence, cigarettes, uncomplicated | CPT/HCPCS: 99283 ==

== ENCOUNTER 2025-03-27 21:28 | Emergency (ER) | payer OTHER ==
[~2025-03-27 21:28] MED LIST: Iopamidol-370 76% 500 ML MDV (1 ML CHARGE) ONE
[2025-03-27] MEDS ORDERED: Ondansetron PF 4 MG/2 ML Vial ONE (21:43)
[2025-03-27 22:05] LABS: #Basophils 0.06 10x3/uL (0.0-0.2); #Eosinophils 0.03 10x3/uL (0.0-0.7); #Monocytes 1.06 10x3/uL (0.11-0.59); #Neutrophils 8.98 10x3/uL (1.40-6.50); %Basophils 0.5 % (0.0-1.0); %Eosinophils 0.2 % (0.0-10.0); %Lymphocytes 21.9 % (21.0-51.0); %Monocytes 8.1 % (0.0-10.0); %Neutrophils 68.8 % (42.0-75.0); Hematocrit 34.0 % (42.0-52.0); Hemoglobin 11.2 g/dL (14.0-18.0); Mean Corpuscular Hemoglobin 26.7 pg (27.0-31.0); Mean Corpuscular Volume 81.0 fL (78.0-98.0); Platelet Count 344 10x3/uL (130-400); Red Blood Cell (RBC) Count 4.20 mill/uL (4.70-6.10); White Blood Cell (WBC) Count 13.05 10x3/uL (4.8-10.8)
[2025-03-27 22:31] LABS: Lipase 27 U/L (8-78)
[2025-03-27 22:34] LABS: ALT (SGPT) 12 U/L (Less than 45); AST (SGOT) 16 U/L (11-34); Acetaminophen Less than 10 mcg/mL (Less than 10); Albumin 3.9 g/dL (3.1-4.5); Alkaline Phosphatase 107 U/L (40-110); Anion Gap 12 mmol/L (10-20); BUN (Urea Nitrogen) Less than 4 mg/dL (8.9-20.6); Bilirubin, Total 0.3 mg/dL (0.3-1.2); CK (CPK) 132 U/L (30-200); Calc. Creatinine Clearance 0 mL/min (70-130); Calcium 9.1 mg/dL (7.8-10.44); Carbon Dioxide 23 mmol/L (22-29); Chloride 101 mmol/L (98-107); Globulin 2.7 g/dL (2.4-3.5); Glucose 95 mg/dL (70-105); Potassium 3.4 mmol/L (3.5-5.1); Salicylate Less than 8.0 mg/dL (Less than 8.0); Sodium 133 mmol/L (136-145)
[2025-03-28 00:01] LABS: Cocaine Metabolite Screen Negative (Negative); THC/Cannabinoid Screen Negative (Negative); Tricyclic Screen Negative (Negative)
== END 2025-03-28 08:05 | disposition home or self-care (01) ==
LOC: ERS 21:28
DX: K40.90 Unilateral inguinal hernia, without obstruction or gangrene, not specified as recurrent (principal); K43.9 Ventral hernia without obstruction or gangrene
CPT/HCPCS: 74177; 80053; 80306; 80307; 82550; 83605; 83690; 84484; 85025; 87040; 87077; 93005; 96374; J2270; J2405; Q9967

== ENCOUNTER 2025-04-16 06:18 | Day surgery (SDC) | payer OTHER ==
[2025-04-16] MEDS ORDERED: Bupivacaine 0.25% HCL 30 ML VIAL ONE (06:35)
[2025-04-16] MEDS ORDERED: PROPOFOL 40 ML ONE (06:59)
[2025-04-16] MEDS ORDERED: fentaNYL PF 100 MCG/2 ML SYRINGE ONE (06:59)
[2025-04-16] MEDS ORDERED: Rocuronium Bromide 10 MG/ML (10ML VIAL) ONE (06:59)
[2025-04-16] MEDS ORDERED: Lidocaine 1% PF 5 ML VIAL ONE (06:59)
[2025-04-16] MEDS ORDERED: CEFAZOLIN 2 GM VIAL ONE (07:23)
[2025-04-16] MEDS ORDERED: Ondansetron PF 4 MG/2 ML Vial ONE (07:47)
[2025-04-16] MEDS ORDERED: SUGAMMADEX SODIUM 200 MG/2 ML VIAL ONE (09:33)
[2025-04-16] MEDS ORDERED: Ketorolac Tromethamine 30 MG (1 mL) VIAL ONE (10:07)
== END 2025-04-16 12:20 | disposition home or self-care (01) ==
LOC: SDC 06:18
PROVIDERS: ATTEND Surgery
DX: K40.20 Bilateral inguinal hernia, without obstruction or gangrene, not specified as recurrent (principal); K43.9 Ventral hernia without obstruction or gangrene; F17.200 Nicotine dependence, unspecified, uncomplicated
CPT/HCPCS: A4314; C1781; J0169; J0665; J1100; J1885; J2405; J2704; J3010; S2900